=== PATIENT | male | born 1965 | race Caucasian/White ===

== ENCOUNTER → 2017-09-10 | Outpatient (CLI) | payer BC ==
--- NOTE | 2017-09-10 10:04 | US ---
EXAMINATION TYPE: US abdomen complete DATE OF EXAM: 09/10/2017 COMPARISON: NONE CLINICAL HISTORY: R10.9 Abdominal Pain. EXAM MEASUREMENTS: Liver Length: 17.4 cm Gallbladder Wall: 0.2 cm CBD: 0.4 cm Spleen: 11.9 cm Right Kidney: 11.4 x 5.2 x 4.9 cm Left Kidney: 11.3 x 6.2 x 5.5 cm Pancreas: Tail obscured by overlying bowel gas, visualized portions show no abnormality Liver: Coarse, heterogeneous echotexture. Measuring upper limits of normal. Hypoechoic area visualiz ed adjacent to the gallbladder measuring 1.2 x 1.3 x 1.3 cm, probable fatty sparring . This has ill- defined margins. This could be further evaluated with CT with contrast. Gallbladder: wnl Evidence for sonographic Parker's sign: No CBD: wnl Spleen: wnl Right Kidney: No hydronephrosis or masses seen Left Kidney: Prominent hypoechoic area with a echogenic rim visualized upper/mid pole measuring 0.9 x 1.0 x 1.0 cm. This could be further evaluated with contrast CT. Upper IVC: wnl Abd Aorta: wnl IMPRESSION: 1. Ill-defined hypodensity within the liver. 2. Echogenic area within the cortex of the left kidney. 3. Recommend contrast CT to further evaluate these findings.
== END | disposition home or self-care (01) ==
LOC: RADUSWWP 07:51
PROVIDERS: ATTEND Family Medicine
DX: R93.2 Abnormal findings on diagnostic imaging of liver and biliary tract (principal); R93.422 Abnormal radiologic findings on diagnostic imaging of left kidney; R10.9 Unspecified abdominal pain
CPT/HCPCS: 76700

== ENCOUNTER → 2023-05-28 | Outpatient (CLI) | payer BC ==
--- NOTE | 2023-05-28 09:15 | US ---
EXAMINATION TYPE: US arterial LE single level DATE OF EXAM: 05/28/2023 8:58 AM CLINICAL INDICATION: Male, 58 years old with history of Z82.49, I73.9; Patient denies any signs or sy mptoms; family history of aneurysms. History of: Smoker: Yes Hypertension: Yes Diabetic: No Hyperlipidemia: No TIA/CVA: No Previous Vascular Surgery: No CAD: No CA: No Vascular Ulcers: No Claudication: No Gangrene: No Doppler Waveforms: Right: Multiphasic Left: Multiphasic Right Brachial Pressure: 140 Left Brachial Pressure: 134 Ankle-Brachial Indices: Right: 1.16 Left: 1.14 Toe Brachial Indices: Right: 1.05 Left: 1.00 Unremarkable exam IMPRESSION: Normal bilateral ankle-brachial indices.
--- NOTE | 2023-05-28 10:10 | US ---
EXAMINATION TYPE: US duplex aorta DATE OF EXAM: 05/28/2023 COMPARISON: 09/10/2017. CLINICAL INDICATION: Male, 58 years old with history of Z82.49, I73.9; Hx Smoker TECHNIQUE: Multiple sonographic images of the abdominal aorta are obtained. 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
== END | disposition home or self-care (01) ==
LOC: RADUSWWP 08:19
PROVIDERS: ATTEND Family Medicine
DX: I73.9 Peripheral vascular disease, unspecified (principal); Z82.49 Family history of ischemic heart disease and other diseases of the circulatory system
CPT/HCPCS: 76706; 93922